=== PATIENT | male | born 1980 | race Asian ===

== ENCOUNTER 2017-07-17 13:28 | Emergency (ER) | payer OTHER ==
[~2017-07-17] VITALS: Ht 167.6 cm; Wt 74.8 kg
[2017-07-17] MEDS ORDERED: NKM (13:38)
[2017-07-17 13:43] VITALS: BP 134/88
--- NOTE | 2017-07-17 14:15 | Emergency Room Report ---
History of Present Illness General Chief Complaint: Upper Extremity Injury Source: Patient Present Illness HPI 37 yo male patient presents to ER complaining of right shoulder and wrist s/p fall on arm at 10AM. Patient reports pain with wrist movement; pain is sharp. Patient also complains of shoulder pain; reports pain radiates down shoulder to wrist; describes pain as "numbness". Patient denies LOC, hitting head. Patient reports pain worse when opening door. Denies use of pain medication. Patient denies chest pain, SOB, fever, rash. Allergies: Coded Allergies: No Known Allergies (Unverified , 07/17/17) Patient History Past Medical History: see triage record Reviewed Nursing Documentation: PMH: Agreed, PSxH: Agreed Nursing Documentation-PMH Past Medical History: No Stated History Review of Systems All Other Systems: negative except mentioned in HPI Physical Exam Vital Signs Date Time Temp Pulse Resp B/P (MAP) Pulse Ox O2 Delivery O2 Flow Rate FiO2 07/17/17 13:34 97.9 56 16 139/94 98 Room Air 97.9 Sp02 EP Interpretation: reviewed, normal Head: normocephalic, atraumatic Eyes: bilateral eye normal inspection, bilateral eye PERRL ENT: hearing grossly normal, normal pharynx, normal voice, uvula midline, moist mucus membranes Respiratory: normal inspection, lungs clear, normal breath sounds, no rhonchi, no respiratory distress, no accessory muscle use, no wheezing, speaking full sentences Cardiovascular #1: regular rate, rhythm Musculoskeletal: back normal, digits/nails normal, gait/station normal, normal range of motion - right arm forward flexion, abduction, aduction; wrist, elbow full ROM, decreased range of motion - internal shoulder rotation, other - Positive Mcgee-Homar test for pain; negative sulcus sign for dislocation; negative Adson; negative Tinel; NVI, no erythema, no edema, no ecchymosis Neurologic: alert, oriented x3, responsive, motor strength/tone normal, normal gait Psychiatric: mood/affect normal Skin: no rash Medical Decision Making PA Attestation Dr. Ramos is my supervising Physician whom patient management has been discussed with. Diagnostic Impression: Primary Impression: Injury of right upper extremity Additional Impression: Wrist pain ER Course Pt. presents to the ED c/o right shoulder and right wrist pain. Ddx considered but are not limited to fracture, sprain, strain, contusion. Vital signs: are WNL, pt. is afebrile ORDERS: An X-ray of the right wrist and right shoulder were ordered, results show were negative, per the preliminary radiology report. ED INTERVENTIONS: Toradol provided to patient for pain. Wrist brace provided to patient. Patient reports symptom improvement. DISCHARGE: -Rx provided for Ibuprofen for pain symptoms. At this time pt. is stable for d/c to home. Patient resting comfortably, in no acute distress, nontoxic appearing. Will provide printed patient care instructions, and any necessary prescriptions. Patient instructed to follow with primary care provider in 3 - 5 days and to request further orthopedic follow-up. Care plan and follow up instructions have been discussed with the patient prior to discharge. Patient instructed on RICE method: rest, ice, compression, elevation. Patient instructed to WBAT. Take medications as directed. Patient questions asked and answered. ER precautions given, patient instructed to return to ER immediately for any new or worsening of symptoms. Other X-Ray Diagnostic Results Other X-Ray Diagnostic Results #1: X-Ray ordered: Right shoulder # of Views/Limited Vs Complete: 3 View Indication: Pain EP Interpretation: Yes PA Xray: Interpretation reviewed, by supervising MD, and agrees with findings. Interpretation: no dislocation, no soft tissue swelling, no fractures Impression: No acute disease TESSA Scribe Oscar Gonsalves PA-C Other X-Ray Diagnostic Results #2: X-Ray ordered: right wrist # of Views/Limited Vs Complete: 3 View Indication: Pain EP Interpretation: Yes PA Xray: Interpretation reviewed, by supervising MD, and agrees with findings. Interpretation: no dislocation, no soft tissue swelling, no fractures Impression: No acute disease PA Scribe Oscar Gonsalves PA-C Last Vital Signs Date Time Temp Pulse Resp B/P (MAP) Pulse Ox O2 Delivery O2 Flow Rate FiO2 07/17/17 13:43 97.7 68 16 134/88 99 Room Air 97.7 Disposition: HOME, SELF-CARE Condition: Stable Scripts Ibuprofen* (MOTRIN*) 600 Mg Tablet 600 MG ORAL Q8H Y for For Pain, #30 TAB 0 Refills Prov: Rajan Gonsalves 07/17/17 Referrals: NON PHYSICIAN (PCP) Patient Instructions: Shoulder Range of Motion Exercises, Wrist Pain, Easy-to- Read Additional Instructions: Patient instructed to follow up with primary care provider and discuss further referral to orthopedics. Patient instructed on RICE method: rest, ice, compression, elevation. Patient instructed to WBAT. Take medications as directed. Patient questions asked and answered. ER precautions given, patient instructed to return to ER immediately for any new or worsening of symptoms. Rajan Gonsalves Jul 17, 2017 14:15
[2017-07-17] MEDS ORDERED: IBUPROFEN600 MG ORAL (15:12)
[2017-07-17 15:23] VITALS: BP 141/93
--- NOTE | 2017-07-17 15:55 | Diagnostic Imaging Report ---
Clinical Indication:Pain Technique: 3 views of the right wrist Comparison: None Findings: There is slight ulnar minus variance. Otherwise normal bony alignment. No acute fractures. No dislocations. The joint spaces are preserved. Impression: Negative
--- NOTE | 2017-07-17 15:55 | Diagnostic Imaging Report ---
Indication: Pain Technique: 3 views of the left shoulder Comparison: None Findings: No acute fractures or dislocations. Joint spaces are preserved. Impression: Negative
== END 2017-07-17 15:22 | disposition home or self-care (01) ==
LOC: EMR 14:00
DX: S49.91XA Unspecified injury of right shoulder and upper arm, initial encounter (principal); M25.531 Pain in right wrist; W19.XXXA Unspecified fall, initial encounter; Y93.9 Activity, unspecified; Y92.9 Unspecified place or not applicable
CPT/HCPCS: 99284